=== PATIENT | female | born 1970 | race Caucasian/White ===

== ENCOUNTER → 2023-05-01 09:26 | Outpatient (CLI) | payer OTHER, SELFPAY ==
--- NOTE | 2023-05-01 | DI.MG.S_ITS ---
UNILATERAL LEFT DIGITAL DIAGNOSTIC MAMMOGRAM 3D/2D: 05/01/2023 CLINICAL: Left breast mass. Comparison is made to exams dated: 10/14/2022 mammogram, 08/23/2021 mammogram, and 08/05/2020 mammogram - outside location. There are scattered areas of fibroglandular density in the left breast (category b / 25%-50% glandular tissue). There are stable various size oval masses with a circumscribed margin in the left breast at 6:00 posterior depth. These correlate as palpated. Patient reports she cannot feel them today. There also are grouped calcifications in the left breast at 6 o'clock posterior depth. These are slightly increased in number. No other significant masses or calcifications are seen in the breast. IMPRESSION: INCOMPLETE: NEEDS ADDITIONAL IMAGING EVALUATION The stable various size oval masses in the left breast 6:00 posterior depth are indeterminate. Ultrasound is recommended and will immediately follow. These correlate as previously palpated, but patient cannot feel anything today. The grouped calcifications in the left breast at 6 o'clock posterior depth are indeterminate. Ultrasound is recommended and will immediately follow. These are slightly increased from prior imaging, in a suggested rim configuration. Based on the Tyrer Cuzick model (a risk assessment model) the patient's lifetime risk is 13.9% and her 10 year risk is 3.5%. According to the ACR, ACS, and NCCN guidelines, an annual breast MRI exam along with mammogram is recommended if the patient's lifetime risk is 20% or greater. This exam was interpreted at Station ID: [id number]. NOTE: For mammograms, a report in lay terms will be sent to the patient. Approximately 15% of breast malignancies will not be visualized mammographically. In the management of a palpable breast mass, a negative mammogram must not discourage biopsy of a clinically suspicious lesion. Electronically Signed By: Caleb azar/:05/02/2023 10:26:05 Entry: - 05/02/2023 10:26:05 ACR BI-RADS Category 0: Incomplete 3340F
--- NOTE | 2023-05-01 | DI.US.S_ITS ---
ULTRASOUND OF LEFT BREAST: 05/01/2023 CLINICAL: Mass of lower outer quadrant of left breast. Comparison is made to exams dated: 05/01/2023 mammogram - [facility] [place], 10/14/2022 mammogram, 08/23/2021 mammogram, and 08/05/2020 mammogram - outside location. Color flow and real-time ultrasound of the left breast were performed. Jones scale images of the real-time examination were reviewed. There is a benign 0.7 cm x 0.5 cm x 0.6 cm oval cyst in the left breast at 6 o'clock posterior depth 2 cm from the nipple. Other surrounding cysts are present. This correlates as palpated and with mammography findings of numerous oval circumscribed masses. Patient could not feel the palpable abnormality today. No sonographic correlate to the mammographic calcifications. No solid sonographic mass. IMPRESSION: PROBABLY BENIGN The 0.7 cm x 0.5 cm x 0.6 cm oval cyst in the left breast is benign. Other surrounding cysts are present. These correlate as palpated and with mammography findings of numerous oval circumscribed masses, the largest cluster corresponding to the palpable marker. Patient could not feel the palpable abnormality today. No sonographic correlate to the mammographic calcifications at 6:00, just posterior to the palpable marker, which are slightly increased compared to more remote imaging, possible rim configuration. A follow-up mammogram and possible ultrasound in 6 months is recommended to demonstrate stability. This exam was interpreted at Station ID: [id number]. Electronically Signed By: Caleb azar/:05/01/2023 11:15:52 letter sent: Followup Recommended Ultrasound BI-RADS: 3 Probably benign
== END ==
PROVIDERS: Referring Provider Family Medicine; Visit Provider Family Medicine
DX: R92.1 Mammographic calcification found on diagnostic imaging of breast; N60.02 Solitary cyst of left breast
CPT/HCPCS: 76642; 77065; G0279

== ENCOUNTER → 2025-03-19 09:30 | Outpatient (CLI) | payer OTHER, SELFPAY ==
[2025-03-19 10:29] LABS: Add Manual Diff / Slide Review NO; Basophils Absolute Auto 100 /uL (0-100); Eosinophils Absolute Auto 100 /uL (0-450); Hematocrit 41.2 % (36-46); Hemoglobin 14.1 g/dL (12.0-16.0); Lymphocytes Absolute Auto 1800 /uL (1100-4500); Lymphocytes Percent Auto 35.5 % (25-40); Mean Corpuscular HGB Conc 34.3 % (30-36); Mean Corpuscular Hemoglobin 31.5 PG (26-34); Monocytes Absolute Auto 400 /uL (0-900); Monocytes Percent Auto 6.9 % (3-14); Neutrophils Absolute Auto 2800 /uL (1500-7000); Neutrophils Percent Auto 54.6 % (50-75); Platelet Count 335 X10^3/uL (150-400); Red Blood Cell Count 4.48 X10^6/uL (4.0-5.2); Red Cell Distribution Width 13.1 % (11.6-14.8); White Blood Cell Count 5.1 X10^3/uL (4.5-11.0)
[2025-03-19 10:54] LABS: Alanine Aminotransferase 17 IU/L (<35); Albumin 4.7 g/dL (3.5-5.0); Albumin Globulin Ratio 1.8 (1.0-2.8); Alkaline Phosphatase 41 U/L (38-126); Aspartate Aminotransferase 25 IU/L (14-36); BUN Creatinine Ratio 13.3 (6-22); Bilirubin Total 0.8 mg/dL (0.2-1.3); Blood Urea Nitrogen 10 mg/dL (7-17); Calcium 10.1 mg/dL (8.4-10.2); Carbon Dioxide 24 mmol/L (22-32); Chloride 104 mmol/L (98-107); Cholesterol 269 mg/dL (140-199); Estimated Glomerular Filt Rate > 60 mL/min (>60); Globulin 2.6 g/dL (1.7-4.1); Glucose 95 mg/dL (70-99); HDL Cholesterol 60 mg/dL (40-60); HEMOLYSIS < 15 (0-50); LDL Cholesterol Calculated 175 mg/dL (<100); Potassium 4.3 mmol/L (3.4-5.1); Sodium 137 mmol/L (137-145); Total Protein 7.3 g/dL (6.3-8.2); Triglycerides 172 mg/dL (35-150)
[2025-03-19 11:12] LABS: Follicle Stimulating Hormone 56.6 mIU/mL
[2025-03-19 11:22] LABS: TSH w/ Reflex to FT4 0.13 uIU/mL (0.47-4.68)
[2025-03-19 12:06] LABS: Free T4, Direct Thyroxine 0.89 ng/dL (0.78-2.19)
[2025-03-21 08:36] LABS: Parathyroid Hormone, Intact 30 pg/mL (15-65)
== END ==
PROVIDERS: PCP Family Medicine; Referring Provider Family Medicine; Visit Provider Family Medicine
DX: Z86.39 Personal history of other endocrine, nutritional and metabolic disease (principal); Z78.0 Asymptomatic menopausal state; F32.9 Major depressive disorder, single episode, unspecified; F41.1 Generalized anxiety disorder; Z13.6 Encounter for screening for cardiovascular disorders
CPT/HCPCS: 36415; 80053; 80061; 82306; 82310; 83001; 83970; 84439; 84443; 85025

== ENCOUNTER → 2025-07-16 10:39 | Outpatient (CLI) | payer OTHER, SELFPAY ==
[2025-07-16 12:26] LABS: Alanine Aminotransferase 28 IU/L (<35); Albumin 4.7 g/dL (3.5-5.0); Albumin Globulin Ratio 1.6 (1.0-2.8); Alkaline Phosphatase 48 U/L (38-126); Blood Urea Nitrogen 14 mg/dL (7-17); Calcium 9.9 mg/dL (8.4-10.2); Carbon Dioxide 26 mmol/L (22-32); Chloride 102 mmol/L (98-107); Cholesterol 237 mg/dL (140-199); Estimated Glomerular Filt Rate > 60 mL/min (>60); Globulin 3.0 g/dL (1.7-4.1); Glucose 91 mg/dL (70-99); HDL Cholesterol 78 mg/dL (40-60); HEMOLYSIS < 15 (0-50); Potassium 4.7 mmol/L (3.4-5.1); Sodium 137 mmol/L (137-145); Total Protein 7.7 g/dL (6.3-8.2); Triglycerides 142 mg/dL (35-150)
[2025-07-16 12:55] LABS: TSH w/ Reflex to FT4 0.36 uIU/mL (0.47-4.68)
[2025-07-16 13:59] LABS: Free T4, Direct Thyroxine 0.86 ng/dL (0.78-2.19)
== END ==
PROVIDERS: PCP Family Medicine; Referring Provider Family Medicine; Visit Provider Family Medicine
DX: E78.5 Hyperlipidemia, unspecified (principal); Z86.39 Personal history of other endocrine, nutritional and metabolic disease; Z79.899 Other long term (current) drug therapy
CPT/HCPCS: 36415; 80053; 80061; 84439; 84443

== ENCOUNTER → 2025-07-18 12:27 | Outpatient (CLI) | payer OTHER, SELFPAY | PROVIDERS: PCP Family Medicine; Referring Provider Family Medicine; Visit Provider Family Medicine | DX: R19.7 Diarrhea, unspecified (principal) | CPT/HCPCS: 87177; 87329 ==

== ENCOUNTER → 2025-07-29 13:32 | Outpatient (CLI) | payer OTHER, SELFPAY ==
[2025-07-31 15:12] LABS: Deamidated Gliadin Ab IgA 4 units (0-19); Deamidated Gliadin Ab IgG 4 units (0-19); Immunoglobulin A,Qn 147 mg/dL (87-352)
== END ==
PROVIDERS: PCP Family Medicine; Referring Provider Family Medicine; Visit Provider Family Medicine
DX: Z13.811 Encounter for screening for lower gastrointestinal disorder (principal)
CPT/HCPCS: 36415; 82784; 83516